=== PATIENT | female | born 1945 | race American Indian/Alaskan Native ===

== ENCOUNTER 2020-03-01 16:17 | Emergency (ER) | payer MEDICARE ==
[2020-03-01 16:43] VITALS: BP 150/79
--- NOTE | 2020-03-01 16:59 | Emergency Department Report ---
ED Fall HPI - General Chief Complaint: Fall Stated Complaint: FALL Time Seen by Provider: 03/01/20 16:53 Source: patient Mode of arrival: Ambulatory - History of Present Illness Initial Comments: This is a very pleasant 74-year-old female presents the emergency department with a chief complaint of a fall that happened earlier today. Patient reports she had a history of a stroke and sometimes her left leg will not cooperate when she walks. She reports she tripped over her left leg and fell and hit the right side of her head against a door. She also complains of pain in the right shoulder, left hip, right knee, right ankle. She denies loss of consciousness. She denies blood thinner use. She reports pain is 6 out of 10 aggravated with movement. Denies any associated fever, chills, night sweats, headache, dizziness, blurry vision, nausea, vomiting, diarrhea, chest pain or shortness of breath. - Related Data Previous Rx's Medication Instructions Recorded Last Taken Type Naproxen [Naprosyn TAB] 500 mg PO BID #20 tablet 03/01/20 Unknown Rx Allergies Allergy/AdvReac Type Severity Reaction Status Date / Time No Known Allergies Allergy Unverified 03/01/20 16:40 ED Review of Systems ROS: Stated complaint: FALL Other details as noted in HPI Comment: All other systems reviewed and negative Constitutional: denies: chills, fever Eyes: denies: eye pain, eye discharge, vision change ENT: denies: ear pain, throat pain Respiratory: denies: cough, shortness of breath, wheezing Cardiovascular: denies: chest pain, palpitations Endocrine: no symptoms reported Gastrointestinal: denies: abdominal pain, nausea, diarrhea Genitourinary: denies: urgency, dysuria, discharge Musculoskeletal: as per HPI, arthralgia. denies: back pain, joint swelling Skin: denies: rash, lesions Neurological: as per HPI. denies: headache, weakness, paresthesias Psychiatric: denies: anxiety, depression Hematological/Lymphatic: denies: easy bleeding, easy bruising ED Past Medical Hx - Past Medical History Previous Medical History?: Yes Additional medical history: stroke - Surgical History Past Surgical History?: No - Social History Smoking Status: Never Smoker - Medications Home Medications: Home Medications Medication Instructions Recorded Confirmed Last Taken Type Naproxen [Naprosyn TAB] 500 mg PO BID #20 tablet 03/01/20 Unknown Rx ED Physical Exam - General Limitations: No Limitations General appearance: alert, in no apparent distress - Head Head exam: Present: atraumatic, normocephalic - Expanded Head Exam Expanded Head exam: Absent: laceration, abrasion, contusion, hematoma, racoon eyes, torrez's sign, general tenderness, CSF rhinorrhea, CSF otorrhea - Eye Eye exam: Present: normal appearance, PERRL, EOMI Pupils: Present: normal accommodation - ENT ENT exam: Present: normal exam, normal orophraynx, mucous membranes moist - Neck Neck exam: Present: normal inspection, full ROM. Absent: tenderness, meningismus - Respiratory Respiratory exam: Present: normal lung sounds bilaterally. Absent: respiratory distress, wheezes, rales, rhonchi, stridor, chest wall tenderness - Cardiovascular Cardiovascular Exam: Present: regular rate, normal rhythm, normal heart sounds. Absent: systolic murmur, diastolic murmur, rubs, gallop - GI/Abdominal GI/Abdominal exam: Present: soft, normal bowel sounds. Absent: distended, tenderness, guarding, rebound, rigid - Extremities Exam Extremities exam: Present: normal inspection, full ROM, tenderness (Mild tenderness to the lateral right ankle without edema or ecchymosis, mild tenderness to the anterior right knee without edema or ecchymosis. The pelvis is stable without tenderness palpation. No midline tenderness to the cervical, thoracic or lumbar spine. Mild tenderness to the proximal right shoulder with no edema or ecchymosis. No tenderness to the bilateral elbows. No tenderness to the right wrist. Tenderness to the left wrist. No axial thumb loading pain or pain to the anatomical snuffbox. No tenderness to the left shoulder.) - Back Exam Back exam: Present: normal inspection, full ROM. Absent: tenderness, CVA tenderness (R), CVA tenderness (L), muscle spasm, paraspinal tenderness, vertebral tenderness - Neurological Exam Neurological exam: Present: alert, oriented X3, normal gait. Absent: motor sensory deficit - Psychiatric Psychiatric exam: Present: normal affect, normal mood - Skin Skin exam: Present: warm, dry, intact, normal color. Absent: rash ED Course Vital Signs 03/01/20 16:41 Temperature 97.8 F Pulse Rate 66 Respiratory 18 Rate Blood Pressure 150/79 O2 Sat by Pulse 100 Oximetry ED Medical Decision Making - Radiology Data Radiology results: report reviewed, image reviewed XRay Report Signed Patient: JERALD DUNLAP MR#: Letha [id number] : 1945 Acct:[id number] Age/Sex: 74 / F ADM Date: 03/01/20 Loc: ED Attending Dr: Ordering Physician: MARYSE GALDAMEZ Date of Service: 03/01/20 Procedure(s): XR wrist 2V LT Accession Number(s): [id number] cc: MARYSE GALDAMEZ Fluoro Time In Minutes: LEFT WRIST 2 VIEWS INDICATION / CLINICAL INFORMATION: pain, fall. COMPARISON: None available. FINDINGS: No significant skeletal abnormality Signer Name: Yunier Rivera MD FACR Signed: 03/01/2020 5:29 PM Workstation Name: [id number] Transcribed By: MS Dictated By: Yunier Rivera MD Electronically Authenticated By: Yunier Rivera MD Signed Date/Time: 03/01/20 1729 XRay Report Signed Patient: JERALD DUNLAP MR#: Letha [id number] : 1945 Acct:[id number] Age/Sex: 74 / F ADM Date: 03/01/20 Loc: ED Attending Dr: Ordering Physician: MARYSE GALDAMEZ Date of Service: 03/01/20 Procedure(s): XR shoulder 2+V RT Accession Number(s): [id number] cc: MARYSE GALDAMEZ Fluoro Time In Minutes: RIGHT SHOULDER 3 VIEWS INDICATION / CLINICAL INFORMATION: pain, fall. COMPARISON: None available. FINDINGS: No significant skeletal abnormality Signer Name: Yunier Rivera MD FACR Signed: 03/01/2020 5:30 PM Workstation Name: [id number] XRay Report Signed Patient: JERALD DUNLAP MR#: Letha [id number] : 1945 Acct:[id number] Age/Sex: 74 / F ADM Date: 03/01/20 Loc: ED Attending Dr: Ordering Physician: MARYSE GALDAMEZ Date of Service: 03/01/20 Procedure(s): XR pelvis 1-2V Accession Number(s): [id number] cc: MARYSE GALDAMEZ Fluoro Time In Minutes: PELVIS ONE VIEW INDICATION / CLINICAL INFORMATION: pain ,fall. COMPARISON: None available. FINDINGS: Mild degenerative change in the hips. No other significant skeletal abnormality Signer Name: Yunier Rivera MD FACR Signed: 03/01/2020 5:30 PM Workstation Name: [id number] Transcribed By: MS Dictated By: Yunier Rivera MD Electronically Authenticated By: Yunier Rivera MD Signed Date/Time: 03/01/20 173 RIGHT KNEE 3 VIEWS INDICATION / CLINICAL INFORMATION: pain, fall. COMPARISON: None available. FINDINGS: Mild medial joint space narrowing. Superior patellar spur. No other significant skeletal abnormality Signer Name: Yunier Rivera MD FACR Signed: 03/01/2020 5:31 PM Workstation Name: [id number] Transcribed By: MS Dictated By: Yunier Rivera MD Electronically Authenticated By: Yunier Rivera MD Signed Date/Time: 03/01/20 173 XRay Report Signed Patient: JERALD DUNLAP MR#: Letha [id number] : 1945 Acct:[id number] Age/Sex: 74 / F ADM Date: 03/01/20 Loc: ED Attending Dr: Ordering Physician: MARYSE GALDAMEZ Date of Service: 03/01/20 Procedure(s): XR ankle 3+V RT Accession Number(s): [id number] cc: MARYSE GALDAMEZ Fluoro Time In Minutes: RIGHT ANKLE 3 VIEWS INDICATION / CLINICAL INFORMATION: pain, fall. COMPARISON: None available. FINDINGS: Calcaneal spurs. No other significant skeletal abnormality Signer Name: Yunier Rivera MD FACR Signed: 03/01/2020 5:31 PM Workstation Name: [id number] Transcribed By: MS Dictated By: Yunier Rivera MD Electronically Authenticated By: Yunier Rivera MD Signed Date/Time: 03/01/20 173 Cat Scan Report Signed Patient: JERALD DUNLAP MR#: [id number] : 1945 Acct:[id number] Age/Sex: 74 / F ADM Date: 03/01/20 Loc: ED Attending Dr: Ordering Physician: MARYSE GALDAMEZ Date of Service: 03/01/20 Procedure(s): CT head/brain w con Accession Number(s): [id number] cc: MARYSE GALDAMEZ CT head/brain w con INDICATION: pain, fall. TECHNIQUE: Routine CT head without contrast. All CT scans at this location are performed using CT dose reduction for ALARA by means of automated exposure control. COMPARISON: None. FINDINGS: BRAIN / INTRACRANIAL CONTENTS: No acute hemorrhage, mass effect, midline shift, or hydrocephalus. No appreciable acute large territorial or lacunar infarct. Moderate chronic small vessel ischemic change in the cerebral white matter. Age commensurate ventricular and cisternal prominence. ORBITS: No significant abnormality of visualized orbits. SINUSES / MASTOIDS: Moderate mucosal thickening in the left maxillary sinus. ADDITIONAL FINDINGS: None. IMPRESSION: 1. No acute intracranial abnormality. Signer Name: Jr Hawk MD Signed: 03/01/2020 6:02 PM Workstation Name: [id number] Transcribed By: ALFREDO Dictated By: Jr Hawk MD Electronically Authenticated By: Jr Hawk MD Signed Date/Time: 03/01/201801 Cat Scan Report Signed Patient: JERALD DUNLAP MR#: [id number] : 1945 Acct:[id number] Age/Sex: 74 / F ADM Date: 03/01/20 Loc: ED Attending Dr: Ordering Physician: MARYSE GALDAMEZ Date of Service: 03/01/20 Procedure(s): CT cervical spine wo con Accession Number(s): [id number] cc: MARYSE GALDAMEZ CT CERVICAL SPINE WITHOUT CONTRAST INDICATION: fall, pain. TECHNIQUE: Axial CT images of the spine were obtained. Sagittal and coronal reformatted images were produced. All CT scans at this location are performed using CT dose reduction for ALARA by means of automated exposure control. COMPARISON: None available. FINDINGS: ACUTE FRACTURE(S) OR SUBLUXATION: None. SPINAL DEGENERATIVE CHANGES: There is moderate left facet DJD from C4 through C7. There is mild disc height loss at C6-7 with disc osteophyte complex causing mild spinal canal stenosis. There is also mild bilateral neural foraminal narrowing at C6-7. PARASPINAL SOFT TISSUES: No soft tissue swelling or other acute abnormalities. ADDITIONAL FINDINGS: No significant additional findings. IMPRESSION: 1. No acute fracture or subluxation in the spine in neutral position. 2. Degenerative findings as detailed above. Signer Name: Jr Hawk MD Signed: 03/01/2020 6:03 PM Workstation Name: [id number] Transcribed By: ALFREDO Dictated By: Jr Hawk MD Electronically Authenticated By: Jr Hawk MD Signed Date/Time: 03/01/20 1805 - Medical Decision Making Patient nontoxic in no acute distress. X-rays were unremarkable. CT of the head and cervical spine were also negative. Patient will be given anti- inflammatories and recommend follow-up with her primary care doctor in the next 24 to 48 hours. Recommend she return the [facility] any change or worsening symptoms. She verbalized understanding the diagnosis, treatment plan and follow-up instructions and all of her questions were answered. - Differential Diagnosis fracture, strain, sprain Critical care attestation.: If time is entered above; I have spent that time in minutes in the direct care of this critically ill patient, excluding procedure time. ED Disposition Clinical Impression: Right ankle sprain Qualifiers: Encounter type: initial encounter Involved ligament of ankle: other ligament Qualified Code(s): S93.491A - Sprain of other ligament of right ankle, initial encounter Sprain of right shoulder Qualifiers: Encounter type: initial encounter Shoulder sprain type: unspecified sprain Qualified Code(s): S43.401A - Unspecified sprain of right shoulder joint, initial encounter Left wrist sprain Qualifiers: Encounter type: initial encounter Qualified Code(s): S63.502A - Unspecified sprain of left wrist, initial encounter Contusion of right knee Qualifiers: Encounter type: initial encounter Qualified Code(s): S80.01XA - Contusion of right knee, initial encounter Closed head injury Qualifiers: Encounter type: initial encounter Qualified Code(s): S09.90XA - Unspecified injury of head, initial encounter Disposition: DC-01 TO HOME OR SELFCARE Is pt being admited?: No Condition: Stable Instructions: Minor Head Injury (ED) Prescriptions: Naproxen [Naprosyn TAB] 500 mg PO BID #20 tablet Referrals: [facility] [Provider Group] - 3-5 Days KARYN SALGADO MD [Staff Physician] - 3-5 Days Time of Disposition: 18:38
--- NOTE | 2020-03-01 17:33 | XRay Report ---
LEFT WRIST 2 VIEWS INDICATION / CLINICAL INFORMATION: pain, fall. COMPARISON: None available. FINDINGS: No significant skeletal abnormality Signer Name: Yunier Rivera MD FACR Signed: 03/01/2020 5:29 PM Workstation Name: [id number]
--- NOTE | 2020-03-01 17:34 | XRay Report ---
PELVIS ONE VIEW INDICATION / CLINICAL INFORMATION: pain ,fall. COMPARISON: None available. FINDINGS: Mild degenerative change in the hips. No other significant skeletal abnormality Signer Name: Yunier Rivera MD FACJules Signed: 03/01/2020 5:30 PM Workstation Name: [id number]
--- NOTE | 2020-03-01 17:35 | XRay Report ---
RIGHT KNEE 3 VIEWS INDICATION / CLINICAL INFORMATION: pain, fall. COMPARISON: None available. FINDINGS: Mild medial joint space narrowing. Superior patellar spur. No other significant skeletal abnormality Signer Name: Yunier Rivera MD FACJules Signed: 03/01/2020 5:31 PM Workstation Name: [id number]
--- NOTE | 2020-03-01 17:35 | XRay Report ---
RIGHT SHOULDER 3 VIEWS INDICATION / CLINICAL INFORMATION: pain, fall. COMPARISON: None available. FINDINGS: No significant skeletal abnormality Signer Name: Yunier Rivera MD FACR Signed: 03/01/2020 5:30 PM Workstation Name: [id number]
--- NOTE | 2020-03-01 17:36 | XRay Report ---
RIGHT ANKLE 3 VIEWS INDICATION / CLINICAL INFORMATION: pain, fall. COMPARISON: None available. FINDINGS: Calcaneal spurs. No other significant skeletal abnormality Signer Name: Yunier Rivera MD FACJules Signed: 03/01/2020 5:31 PM Workstation Name: [id number]
--- NOTE | 2020-03-01 18:06 | Cat Scan Report ---
CT head/brain w con INDICATION: pain, fall. TECHNIQUE: Routine CT head without contrast. All CT scans at this location are performed using CT dos e reduction for ALARA by means of automated exposure control. COMPARISON: None. FINDINGS: BRAIN / INTRACRANIAL CONTENTS: No acute hemorrhage, mass effect, midline shift, or hydrocephalus. No appreciable acute large territorial or lacunar infarct. Moderate chronic small vessel ischemic change in the cerebral white matter. Age commensurate ventricular and cisternal prominence. ORBITS: No significant abnormality of visualized orbits. SINUSES / MASTOIDS: Moderate mucosal thickening in the left maxillary sinus. ADDITIONAL FINDINGS: None. IMPRESSION: 1. No acute intracranial abnormality. Signer Name: Jr Hawk MD Signed: 03/01/2020 6:02 PM Workstation Name: [id number]
--- NOTE | 2020-03-01 18:08 | Cat Scan Report ---
CT CERVICAL SPINE WITHOUT CONTRAST INDICATION: fall, pain. TECHNIQUE: Axial CT images of the spine were obtained. Sagittal and coronal reformatted images were produced. Al l CT scans at this location are performed using CT dose reduction for ALARA by means of automated exp osure control. COMPARISON: None available. FINDINGS: ACUTE FRACTURE(S) OR SUBLUXATION: None. SPINAL DEGENERATIVE CHANGES: There is moderate left facet DJD from C4 through C7. There is mild disc height loss at C6-7 with disc osteophyte complex causing mild spinal canal stenosis. There is also mi ld bilateral neural foraminal narrowing at C6-7. PARASPINAL SOFT TISSUES: No soft tissue swelling or other acute abnormalities. ADDITIONAL FINDINGS: No significant additional findings. IMPRESSION: 1. No acute fracture or subluxation in the spine in neutral position. 2. Degenerative findings as detailed above. Signer Name: Jr Hawk MD Signed: 03/01/2020 6:03 PM Workstation Name: [id number]
== END 2020-03-01 18:58 | disposition home or self-care (01) ==
LOC: ED 16:17
DX: S93.491A Sprain of other ligament of right ankle, initial encounter (principal); S43.401A Unspecified sprain of right shoulder joint, initial encounter; S63.502A Unspecified sprain of left wrist, initial encounter; S80.01XA Contusion of right knee, initial encounter; S09.90XA Unspecified injury of head, initial encounter; Z79.899 Other long term (current) drug therapy; W17.89XA Other fall from one level to another, initial encounter; Y93.89 Activity, other specified; Y92.89 Other specified places as the place of occurrence of the external cause; Y99.8 Other external cause status
CPT/HCPCS: 70460; 72125; 72170